=== PATIENT | female | born 1965 | race Hispanic/Latino ===

== ENCOUNTER 2016-12-09 18:22 | Emergency (ER) | payer BC ==
[2016-12-09 18:36] VITALS: O2SAT 99
--- NOTE | 2016-12-09 19:22 | C.PDOC ---
History Of Present Illness Patient was brought to the ER by BLS after neighbors called 911 stating they have not seen her in the last few days. Patient was found in her apartment somewhat in disarray with numerous bruises on her body. Patient is currently awake, alert and oriented; she states she has narcolepsy and tends to fall a lot. Denies SI or HI. Time Seen by Provider: 12/09/16 19:21 Chief Complaint (Nursing): Medical Clearance History Per: Patient History/Exam Limitations: no limitations Onset/Duration Of Symptoms: Days Current Symptoms Are (Timing): Still Present Severity: None Pain Scale Rating Of: 0 Recent travel outside of the [place]: No Past Medical History Reviewed: Historical Data, Nursing Documentation, Vital Signs Vital Signs: Last Vital Signs Temp Pulse 118 H 12/09/16 18:31 Resp 18 12/09/16 18:31 BP 160/92 H 12/09/16 18:31 Pulse Ox 99 12/09/16 19:52 - Medical History PMH: Asthma Surgical History: No Surg Hx Family History: States: No Known Family Hx - Social History Hx Alcohol Use: Yes Hx Substance Use: No (DENIED) - Immunization History Hx Tetanus Toxoid Vaccination: No Hx Influenza Vaccination: No Hx Pneumococcal Vaccination: No Review Of Systems Constitutional: Negative for: Fever, Chills Eyes: Negative for: Vision Change ENT: Negative for: Throat Pain Cardiovascular: Negative for: Chest Pain, Palpitations Respiratory: Negative for: Cough, Shortness of Breath Gastrointestinal: Negative for: Nausea, Vomiting, Diarrhea Genitourinary: Negative for: Hematuria Musculoskeletal: Negative for: Back Pain Skin: Positive for: Rash, Bruising Neurological: Negative for: Weakness, Numbness Psych: Negative for: Suicidal ideation, Other (Homicidal ideation) Physical Exam - Physical Exam Appears: Non-toxic, No Acute Distress, Other (Awake and alert) Skin: Warm, Dry, Ecchymosis (In different stages of healing on her left forehead , bilateral eyes, behind left ear, bilateral arms and to her bilateral legs.) Head: Normacephalic Eye(s): bilateral: Normal Inspection, PERRL, EOMI Oral Mucosa: Moist Neck: Trachea Midline Chest: Symmetrical, No Tenderness Cardiovascular: Rhythm Regular, No Murmur Respiratory: No Rales, No Rhonchi, No Wheezing Gastrointestinal/Abdominal: Soft, No Tenderness Back: No CVA Tenderness Extremity: No Tenderness, Other (ecchimosis) Extremity: Bilateral: Normal ROM Neurological/Psych: Oriented x3, Normal Speech, Normal Cognition Gait: Steady ED Course And Treatment - Laboratory Results Result Diagrams: 12/09/16 20:36 12/09/16 20:36 O2 Sat by Pulse Oximetry: 99 (Room air) Pulse Ox Interpretation: Normal Progress Note: CT of head, orbits & facials, EKG, blood work, CXR and urinalysis ordered. Reevaluation Time: 21:39 Reassessment Condition: Improved Disposition Counseled Patient/Family Regarding: Studies Performed, Diagnosis, Need For Followup - Disposition Referrals: Bertin Mendez MD [Medical Doctor] - Disposition: HOME/ ROUTINE Disposition Time: 19:22 Condition: FAIR Instructions: Contusion in Adults (DC) - Clinical Impression Clinical Impression: Multiple contusions, Narcolepsy - Scribe Statement The provider has reviewed the documentation as recorded by the Scribe Donte Jones All medical record entries made by the Scribe were at my direction and personally dictated by me. I have reviewed the chart and agree that the record accurately reflects my personal performance of the history, physical exam, medical decision making, and the department course for this patient. I have also personally directed, reviewed, and agree with the discharge instructions and disposition.
[2016-12-09 20:46] LABS: RBC URINE 6 /hpf (0-3); URINE BACTERIA RARE (<OCC); URINE BILIRUBIN NEGATIVE (NEGATIVE); URINE BLOOD 1+ (NEGATIVE); URINE COLOR Yellow (YELLOW); URINE GLUCOSE (UA) NORMAL (Normal); URINE KETONE 2+ mg/dL (NEGATIVE); URINE LEUKOCYTE ESTERASE TRACE Leu/uL (Negative); URINE PROTEIN 1+ mg/dL (NEGATIVE); WBC URINE 7 /hpf (0-5)
[2016-12-09 20:49] LABS: CHLORIDE 103 mmol/L (98-107); POTASSIUM 2.6 mmol/L (3.6-5.2); SODIUM 141 mmol/L (132-148)
[2016-12-09 20:51] LABS: ALB/GLOB RATIO 1.3 (1.0-2.1); AST/SGOT 269 U/L (14-36); BILIRUBIN,TOTAL 1.8 mg/dL (0.2-1.3); CARBON DIOXIDE 14 mmol/L (22-30); GFR AFRICAN-AMERICAN > 60; TOTAL PROTEIN 7.8 g/dL (6.3-8.3)
[2016-12-09 20:52] LABS: ALKALINE PHOSPHATASE 83 U/L (38-126); ALT/SGPT 189 U/L (9-52); BLOOD UREA NITROGEN 30 mg/dL (7-17); CALCIUM 9.7 mg/dl (8.6-10.4); GLUCOSE,RANDOM 118 mg/dL (65-105)
[2016-12-09] MEDS ORDERED: Albuterol-Ipratrop 3 mg / 0.5 (3 ml) UD IH SCH (21:00)
[2016-12-09 21:01] LABS: BASO % 0.4 % (0.0-2.0); EOS % 0.4 % (0.0-4.0); HEMATOCRIT 41.8 % (34.0-47.0); LYMPH # 1.6 K/uL (1.0-4.3); LYMPH % 14.8 % (20.0-40.0); MEAN CELL VOLUME 90.1 fL (81.0-99.0); MEAN CORPUSCULAR HEMOGLOBIN 30.2 pg (27.0-31.0); MEAN CORPUSCULAR HGB CONC 33.5 g/dL (33.0-37.0); MEAN PLATELET VOLUME 9.4 fL (7.2-11.7); MONO # 1.2 K/uL (0.0-0.8); MONO % 11.8 % (0.0-10.0); RED CELL DISTRIBUTION WIDTH 13.4 % (11.5-14.5); WHITE BLOOD COUNT 10.5 K/uL (4.8-10.8)
[2016-12-09 22:09] VITALS: BP 147/89; PULSE 112; RESP 16; TEMP 98.7
--- NOTE | 2016-12-10 08:33 | CT ---
PROCEDURE: CT HEAD WITHOUT CONTRAST. HISTORY: Falls. Head injury. . Evaluate for bleeds. COMPARISON: None available. TECHNIQUE: Axial computed tomography images were obtained through the head/brain without intravenous contrast. Radiation dose: Total exam DLP = 856 mGy-cm. This CT exam was performed using one or more of the following dose reduction techniques: Automated exposure control, adjustment of the mA and/or kV according to patient size, and/or use of iterative reconstruction technique. FINDINGS: HEMORRHAGE: No intracranial hemorrhage. BRAIN: No mass effect or edema. No atrophy or chronic microvascular ischemic changes. VENTRICLES: Unremarkable. No hydrocephalus. CALVARIUM: Unremarkable. PARANASAL SINUSES: Unremarkable as visualized. No significant inflammatory changes. MASTOID AIR CELLS: Unremarkable as visualized. No inflammatory changes. OTHER FINDINGS: Multiple scalp abrasions predominantly involving the right frontal and parietal scalp. Mild atherosclerosis of the vertebral arteries and cavernous carotid arteries. IMPRESSION: Left frontal scalp hematoma. Additional scalp abrasions involving the right frontal parietal scalp. If symptoms persists, consider further evaluation with MRI. These findings were preliminarily reported at 8:59 p.m. on 12/09/[address]Teresa Neal from [facility].
--- NOTE | 2016-12-10 08:40 | CT ---
CT orbits History: Injury. Trauma. Comparison: None available. Technique: Axial computed tomographic images of the face were performed without intravenous contrast. Subsequently, sagittal and coronal reformatted images were obtained. This CT exam was performed using one or more of the following dose reduction techniques: Automated exposure control, adjustment of the mA and/or kV according to patient size, and/or use of iterative reconstruction technique. Findings: Incompletely evaluated prior C6-7 disc fusion with spondylosis at C5-6. Age indeterminate non depressed nasal tip fracture. Mild malar subcutaneous induration. Orbital globes are grossly intact but are better evaluated clinically. Prior sinonasal surgical changes. Visualized paranasal sinuses are preserved. Left frontal scalp hematoma/soft tissue swelling. Impression: Age-indeterminate non depressed nasal tip fracture. Soft tissue injuries as above. These findings were preliminarily reported at 9:04 p.m. on 12/09/[address] Theresa Neal from [facility].
--- NOTE | 2016-12-10 10:58 | RAD ---
PROCEDURE: CHEST RADIOGRAPH, 1 VIEW HISTORY: fall COMPARISON: None available. FINDINGS: LUNGS: No focal infiltrate or effusion. Bibasilar breast and nipple shadows. Biapical pleural thickening. Radiopaque opacity projects over upper trachea, possibly external. Clinical correlation. PLEURA: No pneumothorax or pleural fluid seen. CARDIOVASCULAR: Normal. OSSEOUS STRUCTURES: Mild foreshortening of the distal right clavicle. Clinical correlation. Likely chronic deformities of the right 9th and 10th ribs. Clinical correlation. VISUALIZED UPPER ABDOMEN: Normal. OTHER FINDINGS: None. IMPRESSION: Mild foreshortening of the distal right clavicle. Clinical correlation. Likely chronic deformities of the right 9th and 10th ribs. Clinical correlation.
== END 2016-12-09 22:35 | disposition home or self-care (01) ==
LOC: C.ER 18:22
DX: G47.419 Narcolepsy without cataplexy (principal); T14.8 Other injury of unspecified body region; W19.XXXA Unspecified fall, initial encounter; Y92.009 Unspecified place in unspecified non-institutional (private) residence as the place of occurrence of the external cause
CPT/HCPCS: 70450; 70480; 71010; 80053; 81001; 84703; 85025; 85610; 85730; 99283; G0480